=== PATIENT | female | born 1985 | race Hispanic/Latino ===

== ENCOUNTER 2025-02-14 06:33 | Day surgery (SDC) | payer MEDICAID, MEDICARE ==
[~2025-02-14] VITALS: Ht 160 cm; Wt 75.2 kg
[2025-02-14] VITALS (10 sets, daily range): BP systolic 104–127; BP diastolic 70–81; PULSE 62–79; RESP 14–18; TEMP 97.4–97.6
[2025-02-14] MEDS ORDERED: PHEN15CA61 PO (07:19)
[2025-02-14] MEDS ORDERED: URSO300C4 PO (07:19)
[2025-02-14] MEDS ORDERED: HAIR SKIN NAIL VIT PO (07:19)
[2025-02-14] MEDS ORDERED: CHOL-9 PO (07:19)
[2025-02-14] MEDS ORDERED: LISI1TAB53 PO (07:19)
[2025-02-14] MEDS ORDERED: SEMA2PEN SQ (07:19)
[2025-02-14] MEDS ORDERED: MULT-262 PO (07:19)
[2025-02-14] MEDS ORDERED: LIDOCAINE PF 100MG/5ML (2%) SYRINGE 5ML ONE (07:28)
[2025-02-14] MEDS ORDERED: proPOFol 10 MG/ML 20ML VIAL IV ONE ×2 (07:28→08:10)
[2025-02-14] MEDS: 0.9%NACL 1000ML 1,000 ML IV ONE (08:49)
--- NOTE | 2025-02-14 09:18 | NUR ---
Full and complete discharge instructions given to Patient and Family both verbally and in writing. Explained GI procedure precautions and follow up. All questions answered. PIV removed with catheter tip intact. Home with Family W/C to POV.
== END 2025-02-14 09:15 | disposition home or self-care (01) ==
LOC: ENDO 06:33 → DAH 06:33 → ENDO 09:15
PROVIDERS: ATTEND Surgery
DX: K30 Functional dyspepsia (principal); K44.9 Diaphragmatic hernia without obstruction or gangrene; K22.89 Other specified disease of esophagus; R11.2 Nausea with vomiting, unspecified; I10 Essential (primary) hypertension; E11.9 Type 2 diabetes mellitus without complications; E66.01 Morbid (severe) obesity due to excess calories; Z68.29 Body mass index [BMI] 29.0-29.9, adult; Z90.49 Acquired absence of other specified parts of digestive tract; Z98.0 Intestinal bypass and anastomosis status; Z90.710 Acquired absence of both cervix and uterus; Z98.891 History of uterine scar from previous surgery; Z98.890 Other specified postprocedural states
CPT/HCPCS: 82948; 43239; J7030; J2003; J2704 ×2; A4620; A4215 ×2; A4223; A4222; A4221; A4663; A4606; J3490